=== PATIENT | male | born 1995 | race Two or more races ===

== ENCOUNTER 2022-12-14 13:33 | Emergency (ER) | payer OTHER ==
[~2022-12-14] VITALS: Ht 167.6 cm; Wt 88.5 kg
== END 2022-12-14 18:34 | disposition home or self-care (01) ==
LOC: ER 13:33
DX: J06.9 Acute upper respiratory infection, unspecified (principal); Z20.822 Contact with and (suspected) exposure to COVID-19

== ENCOUNTER 2022-12-28 12:58 | Outpatient (CLI) | payer OTHER | END 2022-12-28 13:02 | disposition home or self-care (01) | LOC: LAB 12:58 | PROVIDERS: ATTEND Obstetrics & Gynecology | DX: Z20.828 Contact with and (suspected) exposure to other viral communicable diseases (principal); Z20.818 Contact with and (suspected) exposure to other bacterial communicable diseases ==